=== PATIENT | female | born 1940 | race Asian ===

== ENCOUNTER 2022-06-21 14:52 | Outpatient (CLI) | payer MEDICARE, MEDICAID | END 2022-06-21 23:59 | disposition home or self-care (01) | LOC: TAVR 14:52 | PROVIDERS: ATTEND Internal Medicine Cardiovascular Disease | DX: J90 Pleural effusion, not elsewhere classified (principal); M47.814 Spondylosis without myelopathy or radiculopathy, thoracic region; R06.02 Shortness of breath; Z95.5 Presence of coronary angioplasty implant and graft | CPT/HCPCS: 71046 ==

== ENCOUNTER 2022-09-04 14:13 | Day surgery (SDC) | payer MEDICARE, MEDICAID ==
[2022-08-30 09:11] LABS: BASOPHILS % (AUTO) 0.5 % (0-1); EOSINOPHILS # (AUTO) 0.3 X10'3 (0-0.9); EOSINOPHILS % (AUTO) 5.4 % (0-6); HEMATOCRIT 31.8 % (35.0-45.0); HEMOGLOBIN 10.3 g/dl (12.0-16.0); LYMPHOCYTES # (AUTO) 1.9 X10'3 (1.1-4.8); MEAN CORPUSCULAR HEMOGLOBIN 27.3 PG (27.0-31.0); MEAN CORPUSCULAR HGB CONC 32.5 g/dL (33.0-36.5); MEAN PLATELET VOLUME 6.5 FL (7.4-10.4); MONOCYTES # (AUTO) 0.4 X10'3 (0-0.9); MONOCYTES % (AUTO) 7.5 % (2-12); NEUTROPHILS # (AUTO) 2.6 X10'3 (1.8-7.7); NEUTROPHILS % (AUTO) 50.6 % (42-75); PLATELET COUNT 339 X10'3 (140-440); RED BLOOD COUNT 3.79 X10'6 (4.20-5.60); RED CELL DISTRIBUTION WIDTH 15.1 % (11.5-14.5); WHITE BLOOD COUNT 5.2 X10'3 (4.5-11.0)
[2022-08-30 09:39] LABS: APTT 23 SECONDS (22-32)
[2022-08-30 09:51] LABS: ALBUMIN 3.9 G/DL (3.4-5.0); BLOOD UREA NITROGEN 42 MG/DL (7-18); BUN/CREATININE RATIO 25.3 (6.6-38.0); CHOL/HDL RATIO 3.4 (0.00-4.99); CHOLESTEROL 131 MG/DL (0-200); CREATININE 1.66 MG/DL (0.40-0.90); GLUCOSE 178 MG/DL (70-104); HDL CHOLESTEROL 38 MG/DL (35-60); LDL CHOLESTEROL 57 MG/DL (50-100); TOTAL CARBON DIOXIDE 26.1 MMOL/L (24-32); TRIGLYCERIDES 197 MG/DL (20-135); eGFR 30 ML/MIN
[2022-08-30 10:19] LABS: ANION GAP 9 (8-16); CHLORIDE 102 MMOL/L (99-107); POTASSIUM 4.5 MMOL/L (3.5-5.1); SODIUM 137 MMOL/L (135-145)
[~2022-09-04] VITALS: Ht 165.1 cm; Wt 56.9 kg
[2022-09-04] VITALS (7 sets, daily range): BP systolic 125–150; BP diastolic 64–74
[2022-09-04] MEDS ORDERED: normal saline 1,000 ML IV SCH (14:30)
[2022-09-04] MEDS ORDERED: LORazepam 0.5 MG tablet PO PRN (14:30)
[2022-09-04] MEDS ORDERED: diphenhydrAMINE 25mg capsule PO PRN (14:30)
[2022-09-04] MEDS ORDERED: NITR0.4T48 SL (15:30)
[2022-09-04] MEDS ORDERED: TICA90TA2 PO (15:30)
[2022-09-04] MEDS ORDERED: OMEP20CA16 PO (15:30)
[2022-09-04] MEDS ORDERED: MIRT7.5T11 PO (15:30)
[2022-09-04] MEDS ORDERED: METF-900 PO (15:30)
[2022-09-04] MEDS ORDERED: GABA300C PO (15:30)
[2022-09-04] MEDS ORDERED: DAPA10TA PO (15:30)
[2022-09-04] MEDS ORDERED: ASPI-1397 PO (15:30)
[2022-09-04] MEDS ORDERED: ATOR20TA66 PO (15:30)
[2022-09-04] MEDS ORDERED: METO-395 PO (15:30)
[2022-09-04] MEDS ORDERED: SACU1TAB PO (15:30)
[2022-09-04] MEDS ORDERED: QUET25TA36 PO (15:30)
[2022-09-04] MEDS ORDERED: INSU100V9 SQ (15:32)
[2022-09-04] MEDS ORDERED: nitroGLYCERIN-Tridil 50MG/D5W 250 ML IV ONE (15:58)
[2022-09-04] MEDS ORDERED: midazolam 1 mg/ML 2ml injection ONE (15:58)
[2022-09-04] MEDS ORDERED: verapamil 2.5 mg/ml inj IV ONE (15:58)
[2022-09-04] MEDS ORDERED: fentaNYL/PF 50MCG/1 ML 2ML syringe ONE (15:58)
[2022-09-04] MEDS ORDERED: heparin 1,000unit/ml 10ml vial 10 ML ONE (15:59)
[2022-09-04] MEDS ORDERED: iohexol 350MG/ML 100ml bottle IV ONE (15:59)
[2022-09-04] MEDS ORDERED: LIDOcaine 1% (10mg/ml) 2ml vial ONE (15:59)
[2022-09-04] MEDS ORDERED: iohexol 350 MG/ML 50ML vial IV ONE (17:25)
[2022-09-04] MEDS ORDERED: HYDROcodone/acetaminophen 10/325mg tab PO PRN (18:15)
[2022-09-04] MEDS ORDERED: HYDROcodone/acetaminophen 5mg/325mg tablet PO PRN (18:15)
[2022-09-04] MEDS ORDERED: normal saline 1000ml 1,000 ML IV SCH (18:15)
== END 2022-09-04 19:44 | disposition home or self-care (01) ==
LOC: SSTAY O 14:13
PROVIDERS: ATTEND Student in an Organized Health Care Education/Training Program
DX: R94.39 Abnormal result of other cardiovascular function study (principal); R07.89 Other chest pain; I25.10 Atherosclerotic heart disease of native coronary artery without angina pectoris; E78.5 Hyperlipidemia, unspecified; I47.1 Supraventricular tachycardia; E11.9 Type 2 diabetes mellitus without complications; I48.91 Unspecified atrial fibrillation; I11.0 Hypertensive heart disease with heart failure; I50.9 Heart failure, unspecified; Z79.82 Long term (current) use of aspirin; Z79.84 Long term (current) use of oral hypoglycemic drugs; Z79.899 Other long term (current) drug therapy
CPT/HCPCS: 36415; 80048; 80061; 82948; 85025; 85610; 85730; 93458; 99152; 99153; C1769; C1894; J1644; J2250; J3010; J3490; J7030; Q0163; Q9967; A6258; A6402